=== PATIENT | female | born 1985 | race Hispanic/Latino ===

== ENCOUNTER → 2021-05-31 | Outpatient (CLI) ==
[~2021-05-31] MED LIST: PREN200C PO
== END ==
LOC: EDUNIT# 12:10 → M LABSMTC 12:16
PROVIDERS: ATTEND Anesthesiology
DX: Z01.812 Encounter for preprocedural laboratory examination (principal); Z11.52 Encounter for screening for COVID-19

== ENCOUNTER 2021-06-03 10:48 | Day surgery (SDC) | payer OTHER ==
[~2021-06-03] VITALS: Ht 152.4 cm; Wt 63.0 kg
[~2021-06-03 10:48] MED LIST changes: +DOXYCYCLINE HYCLATE 100MG TABLET PO ONE; +LR 1,000 ML IV ONE
[2021-06-03 11:30] LABS: HEMATOCRIT 41.1 % (36.0-47.0); HEMOGLOBIN 13.6 g/dl (12.0-15.5); MEAN CORPUSCULAR HEMOGLOBIN 31.2 pg (27.0-33.0); MEAN CORPUSCULAR HGB CONC 33.1 g/dl (32.0-36.5); MEAN CORPUSCULAR VOLUME 94.3 fl (80.0-96.0); PLATELET COUNT, AUTOMATED 308 10^3/uL (150-450); RED BLOOD COUNT 4.36 10^6/uL (4.00-5.40); WHITE BLOOD COUNT 7.7 10^3/uL (4.0-10.0)
[2021-06-03 11:56] LABS: BLOOD UREA NITROGEN 11 MG/DL (7-18); CALCIUM LEVEL 8.9 MG/DL (8.5-10.1); CARBON DIOXIDE LEVEL 26 MEQ/L (21-32); CHLORIDE LEVEL 106 MEQ/L (98-107); CREATININE FOR GFR 0.66 MG/DL (0.55-1.30); GLOMERULAR FILTRATION RATE > 60.0 (>60); GLUCOSE, FASTING 79 MG/DL (70-100); POTASSIUM SERUM 4.1 MEQ/L (3.5-5.1); SODIUM LEVEL 138 MEQ/L (136-145)
[2021-06-03] MEDS ORDERED: MIDAZOLAM INJ 2MG/2ML VIAL (J2250 PER 1MG) As Ordered ONE (12:16)
[2021-06-03] MEDS ORDERED: fentaNYL 100 MCG/2 ML INJECTION (J3010) As Ordered ONE (12:17)
[2021-06-03] MEDS ORDERED: KETOROLAC 60MG 2ML VIAL As Ordered ONE (12:17)
[2021-06-03] MEDS ORDERED: dexameTHASONE 4 MG/ML 1ML VIAL (J1100 PER 1MG) As Ordered ONE (12:17)
[2021-06-03] MEDS ORDERED: ONDANSETRON 4MG/2ML VIAL As Ordered ONE (12:17)
[2021-06-03] MEDS ORDERED: LIDOCAINE 2% 100MG/5ML SDV (FOR ANES.) As Ordered ONE (12:19)
[2021-06-03] MEDS ORDERED: propofoL 200 MG/20 ML VIAL As Ordered ONE (12:20)
[2021-06-03] MEDS ORDERED: ACETAMINOPHEN 1000MG 100ML IV BTL (OFIRMEV) (J0131 PER 10MG) As Ordered ONE (12:36)
[2021-06-03] MEDS ORDERED: SILVER NITRATE APPLICATOR As Ordered ONE (13:08)
[2021-06-03] MEDS ORDERED: oxyCODONE 5MG TAB PO PRN (13:40)
[2021-06-03] MEDS ORDERED: LR 1,000 ML IV SCH (13:40)
[2021-06-03] MEDS ORDERED: METOCLOPRAMIDE INJ 10MG/2ML VIAL (J2765 PER 1) IV PRN (13:40)
[2021-06-03] MEDS ORDERED: ONDANSETRON 4MG/2ML VIAL IV PRN (13:40)
[2021-06-03] MEDS: fentaNYL 100 MCG/2 ML INJECTION (J3010) IV PRN ×4 (13:54→14:11)
[2021-06-03] MEDS: DOXYCYCLINE HYCLATE 100 MG in D5W MINI-BAG PLUS 100 ML IV SCH ×2 (14:19→15:04)
--- NOTE | 2021-06-03 16:14 | RO ---
OPERATIVE NOTE DATE OF OPERATION: 06/03/2021 PREOPERATIVE DIAGNOSIS: Missed . POSTOPERATIVE DIAGNOSIS: Missed . PROCEDURE: Suction dilation and curettage. SURGEON: Sylvester Rae DO HONING JOB SETTER: None. ANESTHESIA: General IV FLUIDS: 1200 mL LR. URINE OUTPUT: 5 mL via Arboleda catheter. ESTIMATED BLOOD LOSS: 300 mL ANTIBIOTICS: 100 mg of doxycycline before the case and then 200 mg of doxycycline after the case. COMPLICATIONS: None. DETAILED PROCEDURE DESCRIPTION: The risks, benefits, indications, and alternatives of the procedure were reviewed with the patient and informed consent was obtained. The patient was taken to the operating room where general anesthesia was obtained without difficulty. She was then placed in the lithotomy position with her feet up in stirrups. The patient was then prepped and draped in the usual sterile fashion and her bladder was drained using an in and out catheter. A surgical time-out was then performed and the patient's identity and planned procedure were verified with the operative team. A sterile speculum was then placed into the vagina and the cervix was visualized. The cervix was grasped at the anterior lip with a single-toothed tenaculum. The cervix was gently, serially dilated to a size 18 [place] with Sonido dilators. An 8 mm suction curette was then inserted into the uterus and gently advanced up to the uterine fundus. The suction device as activated up into the green zone and the catheter was rotated to clear the uterus of the products of conception. There was an initial brisk bleeding which required multiple passes of the suction catheter to control. The suction catheter was then removed. A gentle sharp curettage was then performed until a uterine cri was noted in all planes. Two more passes of the suction catheter were performed and minimal to no tissue was obtained. Bleeding then ultimately ceased. A bedside transvaginal ultrasound was then performed and the uterus was noted to have a thin endometrial stripe approximately 1 cm with no evidence of retained products of conception. Inspection of the cervix revealed continued hemostasis and no further bleeding. The single-toothed tenaculum was then removed from the anterior lip of the cervix and the tenaculum sites were made hemostatic with sticks of silver nitrate. Again the cervix was inspected and there was no bleeding. The speculum was then removed from the patient's vagina. All instruments were then confirmed to have been removed from the patient's vagina. The patient tolerated the procedure well. She was awakened from anesthesia and taken to the PACU in stable condition. ZAFAR
[2021-06-03 16:55] VITALS: BP 123/78
== END 2021-06-03 17:00 | disposition home or self-care (01) ==
LOC: M SDC 10:48
PROVIDERS: ATTEND Obstetrics & Gynecology
DX: O02.1 Missed abortion (principal); Z87.442 Personal history of urinary calculi
CPT/HCPCS: 36415; 59812; 80048; 85027; 86850; 86900; 86901; 88233; 88262; 88291; 88305; J0131; J1100; J1885; J2250; J2405; J3010

== ENCOUNTER 2021-07-18 17:40 | Emergency (ER) | payer OTHER ==
[~2021-07-18] VITALS: Ht 152.4 cm; Wt 62.6 kg
[~2021-07-18 17:40] MED LIST changes: -DOXYCYCLINE HYCLATE 100MG TABLET PO ONE; -LR 1,000 ML IV ONE
[2021-07-18] MEDS ORDERED: NS 1,000 ML IV ONE (18:20)
[2021-07-18] MEDS ORDERED: ONDANSETRON 4MG/2ML VIAL IV ONE (18:20)
[2021-07-18 19:07] LABS: BASO # 0.1 10^3/uL (0.0-0.2); EOS # 0.2 10^3/uL (0.0-0.5); EOS % 1.9 % (0.0-3.0); LYMPH # 3.2 10^3/uL (1.5-5.0); LYMPH % 36.3 % (24.0-44.0); MEAN CORPUSCULAR HEMOGLOBIN 30.5 pg (27.0-33.0); MEAN CORPUSCULAR HGB CONC 32.4 g/dl (32.0-36.5); MEAN CORPUSCULAR VOLUME 93.9 fl (80.0-96.0); MONO # 0.7 10^3/uL (0.0-0.8); MONO % 8.2 % (2.0-8.0); NEUTROPHILS # 4.6 10^3/uL (1.5-8.5); NEUTROPHILS % 52.3 % (36.0-66.0); PLATELET COUNT, AUTOMATED 344 10^3/uL (150-450); RED BLOOD COUNT 3.94 10^6/uL (4.00-5.40); WHITE BLOOD COUNT 8.9 10^3/uL (4.0-10.0)
--- NOTE | 2021-07-18 19:41 | REP ---
INDICATION: heavy vag bleeding, D COMPARISON: None. TECHNIQUE: Transabdominal pelvic ultrasound followed by transvaginal examination for better evaluation of the endometrium and adnexa with color Doppler evaluation of the ovaries. FINDINGS: Bladder is unremarkable and measures 8.1 x 6.7 x 4.1 cm. Anteverted uterus measures 8.5 x 4.0 x 6.0 cm. The endometrial complex is heterogeneous and thickened measuring 19.5 mm. No discrete uterine or endometrial abnormalities are appreciated. Bilateral ovaries are normal in appearance and vascularity without evidence for torsion. Right ovary measures 3.1 x 1.9 x 2.4 cm and includes 2.9 cm cyst; R I = 0.71. Left ovary measures 4.3 x 4.0 x 4.5 cm and includes 4.2 cm cyst; R I = 0.79. No pelvic fluid or adnexal mass lesion. IMPRESSION: Thickened heterogeneous endometrial complex. Large simple bilateral ovarian cysts. Consider re-evaluation in 4-6 weeks to evaluate for resolution. <Electronically signed by Howard Miranda > 07/18/211935
[2021-07-18 20:08] VITALS: BP 172/100
--- NOTE | 2021-07-24 11:22 | ED PDOC ---
Post-Departure Follow-Up radiology report faxed to [facility] Ella Gonzalez MD Jul 24, 2021 11:22
== END 2021-07-18 21:05 | disposition home or self-care (01) ==
LOC: M ED 17:40
DX: N92.0 Excessive and frequent menstruation with regular cycle (principal); R89.1 Abnormal level of hormones in specimens from other organs, systems and tissues
CPT/HCPCS: 36415; 76830; 76856; 80047; 84702; 85025; 86850; 86900; 86901; 93976; 96361; 96374; 99284; J2405